=== PATIENT | male | born 1950 | race Caucasian/White ===

== ENCOUNTER 2017-11-06 14:12 | Emergency (ER) | payer OTHER ==
[~2017-11-06] VITALS: Ht 162.6 cm; Wt 65.8 kg
--- NOTE | 2017-11-06 14:20 | ED PSYCHIATRIC COMPLAINT ---
History of Present Illness General Chief Complaint: Psychiatric Related Complaint Stated Complaint: BIBA, BEHAVIOR ISSUES Source: patient, EMS Exam Limitations: clinical condition Vital Signs & Intake/Output Vital Signs & Intake/Output Vital Signs Date Time Temp Pulse Resp B/P B/P Pulse O2 O2 Flow FiO2 Mean Ox Delivery Rate 11/06 1910 98.0 110 20 134/73 99 11/06 1553 136/86 11/06 1414 98.0 108 20 163/87 98 Room Air Allergies Coded Allergies: No Known Allergies (11/06/17) Reconcile Medications Insulin Detemir (Levemir) 100 UNIT/ML VIAL DIABETES (Reported) Tamsulosin HCl (Flomax) 0.4 MG CAP.ER.24H 1 CAP PO DAILY PROSTATE (Reported) Triage Nurses Notes Reviewed? yes Onset: Abrupt Duration: day(s): (FEW) Timing: recent history Severity: moderate, severe Associated Symptoms: AGITATION, DESTROYED PROPERTY HPI: This is a 67-year-old male with history of bipolar disorder sent in from [facility] for behavioral disturbances. According to the nurse he has been disrobing , disruptive, destroying his property in the room as well as wrapping of the thermometer from the wall. Patient was started on Seroquel and Ativan for behavioral issues a few days ago. He just had Ativan prior to coming here. They're trying to refer him to [facility] here and thought they might have a bed today but there will be no bed available tomorrow. They're having issues with medicating him to keep him calm. He was recently admitted to [facility] after being discharged from [facility] this past Saturday. He arrived with no psychiatric medication recommendations. (Pia Mcintyre MD) Past History Travel History Traveled to [place] past 21 day No Medical History Any Pertinent Medical History? see below for history Cardiovascular: hypertension Psychiatric: bipolar disease Endocrine: diabetes Surgical History Surgical History: unobtainable Family History Hx Contributory? No (Pia Mcintyre MD) Review of Systems Review of Systems Constitutional: Reports: see HPI (PER HPI). (Pia Mcintyre MD) Physical Exam Physical Exam General Appearance: well developed/nourished, alert, awake, anxious, mild distress Head: atraumatic, normal appearance Eyes: Bilateral: normal appearance, PERRL, EOMI. Ears, Nose, Throat: hearing grossly normal Neck: normal inspection, supple, full range of motion Respiratory: normal breath sounds, chest non-tender, no respiratory distress Cardiovascular: regular rate/rhythm, normal peripheral pulses Gastrointestinal: soft, non-tender Neurological/Psychiatric: awake, alert, CONFUSED Appearance/Memory/Insight: disheveled, impaired insight Behavoir/Eye Contact/Speech: cooperative, decreased rate of speech Thoughts/Hallucinations: no apparent hallucination SAD PERSONS Done? unobtained due to conditi (Francisco Javier BENZ,Pia) Progress Differential Diagnosis: BIPOLAR DISORDER, PSYCHOSIS, DEMENTIA, DELERIUM Plan of Care: Orders Procedure Date/time Status Patient Safety Monitor 11/06 1551 Active ED CRISIS PSYCH CONSULT 11/06 1509 Active Patient Safety Monitor 11/06 1455 Complete URINE DRUGS OF ABUSE 11/06 1455 Complete ETHANOL 11/06 1455 Complete COMPREHENSIVE METABOLIC PANEL 11/06 1455 Complete CBC WITHOUT DIFFERENTIAL 11/06 145 Complete Current Medications Sig/Evelia Start time Last Medication Dose Stop Time Status Admin Lorazepam 0.5 MG Q4 PRN 11/06 1515 AC (Ativan) 11/13 1516 Laboratory Tests 11/06/17 1727: Urine Opiates Screen < 100.00, Methadone Screen < 40, Barbiturate Screen < 60, Ur Phencyclidine Scrn < 6.00, Amphetamines Screen < 100, U Benzodiazepines Scrn < 85, Urine Cocaine Screen < 50, Urine Cannabis Screen < 5.00 11/06/17 1535: Anion Gap 10, Estimated GFR > 60, BUN/Creatinine Ratio 21.7, Glucose 177 H, Calcium 9.0, Total Bilirubin 0.4, AST 27, ALT 47, Alkaline Phosphatase 66, Total Protein 6.0 L, Albumin 3.5, Globulin 2.5, Albumin/Globulin Ratio 1.4, CBC w Diff NO MAN DIFF REQ, RBC 3.63 L, MCV 89.9, MCH 30.1, MCHC 33.5, RDW 15.1 H, MPV 9.1, Gran % 56.4, Lymphocytes % 29.7, Monocytes % 11.1 H, Eosinophils % 2.3 , Basophils % 0.5, Absolute Granulocytes 4.4, Absolute Lymphocytes 2.3, Absolute Monocytes 0.9 H, Absolute Eosinophils 0.2, Absolute Basophils 0, Serum Alcohol < 10.0 Hand-Off Endorsed To: Valeria BENZ,Carroll Harris Endorsed Time: 1933 Pending: consult (CRISIS) (Pia Mcintyre MD) Comments: Patient has been seen and evaluated by dog or animal sitter. Patient is found not to be a danger to himself or others at this time. Case was discussed with the psychiatrist as well as the nurse over at the facility. Patient is stable for discharge back. (Valeria BENZ,Carroll Harris) Departure Departure Disposition: STILL A PATIENT Condition: Stable Clinical Impression Primary Impression: Bipolar 1 disorder Referrals: Bryce Seals MD (PCP/Family) Departure Forms: Customer Survey General Discharge Information (Pia Mcintyre MD)
[2017-11-06] MEDS ORDERED: LEVEMIR100 UNIT/1 SC (14:50)
[2017-11-06] MEDS ORDERED: FLOMAX0.4 M1 PO (14:51)
[2017-11-06 15:47] LABS: ABSOLUTE BASOPHIL COUNT 0 /CUMM (0.0-0.2); ABSOLUTE EOSINOPHIL COUNT 0.2 /CUMM (0.0-0.7); ABSOLUTE GRANULOCYTE CT 4.4 /CUMM (1.4-6.5); ABSOLUTE LYMPH COUNT 2.3 /CUMM (1.2-3.4); ABSOLUTE MONOCYTE COUNT 0.9 /CUMM (0.10-0.60); BASOPHIL % 0.5 % (0.0-2.0); EOSINOPHIL % 2.3 % (0-5); GRANULOCYTE % 56.4 % (42.2-75.2); HEMATOCRIT 32.6 % (42-52); MEAN CORPUSCULAR HGB 30.1 PG (27.0-31.0); MEAN CORPUSCULAR HGB CONC 33.5 G/DL (33.0-37.0); MEAN CORPUSCULAR VOLUME 89.9 FL (80.0-94.0); MEAN PLATELET VOLUME 9.1 FL (7.4-10.4); PLATELET COUNT 300 /CUMM (130-400); RBC DISTRIBUTION WIDTH 15.1 % (11.5-14.5); RED BLOOD CELL CT 3.63 /CUMM (4.70-6.10); WHITE BLOOD CELL COUNT 7.7 /CUMM (4.8-10.8)
--- NOTE | 2017-11-06 20:45 | ED PSYCH CRISIS CONSULTATION ---
Crisis Consult Basic Assessment Date of Consult: 11/06/17 Responsible Person/Accompanied By: Brought in by ambulance from [facility] Insurance Authorization: Insurance #1: Insurance name: [employer] Policy number: [id number] ED Provider: Patient's ED Provider: Valeria BENZ,Carroll Harris Primary Care Physician: Patient's PCP: Bryce Seals MD PCP's Current Psychiatrist: No current psychiatrist Chief Complaint: Psychiatric Related Complaint Patient's Quote: "I dont know...they wanted to reevaluate me...I was exciteable. " Present Illness: Patient is a 67 year old male who presents to the emergency department / crisis from a rehabiliatation center ([facility] in [place].) Patient was recently discharged from [facility] where he had an extended stay for a leg ampuation. Patient is a type II diabetic. [facility] report patient presents with disruptive behavior, agitation, and destruction of property. Patient is a - his ~10 years ago from congestive heart failure. He has no children. Patient admits to being "exciteable" and agitated. Patient asserts his mood can become agitated stating "if you become an amputee youre not going to be happy." Patient expressed difficulty adjusting to his amputee status and the reason why it happened (bacterial infection acquired while hospitalized for uncontrolled diabetes.) Patient denies homicidal ideation, suicidal ideation, intent or plan. Patient presents calm, rational, and without any indication of active psychosis. Patient denies auditory or visual hallucinations. Patient does report a historical diagnosis of bipolar disorder stating he is a "manic depressive." Patient reports history of psychotropic medication including lithium and depakote. Patient currently is not prescribed any psychotropic medications. While in ED, patient did receive Ativan and Seroquel which he reports has good effect. Patient is receptive to ongoing medication management. Patient denies any acute medical concerns at this time and has been medically cleared by attending physician Dr. Mcintyre. Patient denies any substance use - urine toxicology screening administered today is negative for all substances. Patient has the support of his brother Tom Cintron who is also his power of employment law attorney. This brother lives in [place]. Patient also listed a close friend - Kristie Saeed [facility]. Patient has no supportive contacts in the state of [place]. Patient was residing in [place], [place] in a private apartment. Patient asserts he may not be ready to go back to independent living and his goal is to be considered for an assisted living facility. Patient's Address: [place] [address] Who Do You Live With? Patient/Self Family/Informants Interviewed: Shanthi -nurse at [facility] Allergies - Coded Allergies: No Known Allergies (11/06/17) Current Medications - Scheduled Medications Tamsulosin HCl (Flomax) 0.4 MG CAP.ER.24H 1 CAP PO DAILY PROSTATE (Reported) Entered as Reported by Jorge Pina on 11/06/17 1451 Miscellaneous Medications Insulin Detemir (Levemir) 100 UNIT/ML VIAL DIABETES (Reported) Entered as Reported by Jorge Pina on 11/06/17 1450 Laboratory Results: Laboratory Tests 11/06/17 1727: Urine Opiates Screen < 100.00, Methadone Screen < 40, Barbiturate Screen < 60, Ur Phencyclidine Scrn < 6.00, Amphetamines Screen < 100, U Benzodiazepines Scrn < 85, Urine Cocaine Screen < 50, Urine Cannabis Screen < 5.00 11/06/17 1535: Anion Gap 10, Estimated GFR > 60, BUN/Creatinine Ratio 21.7, Glucose 177 H, Calcium 9.0, Total Bilirubin 0.4, AST 27, ALT 47, Alkaline Phosphatase 66, Total Protein 6.0 L, Albumin 3.5, Globulin 2.5, Albumin/Globulin Ratio 1.4, CBC w Diff NO MAN DIFF REQ, RBC 3.63 L, MCV 89.9, MCH 30.1, MCHC 33.5, RDW 15.1 H, MPV 9.1, Gran % 56.4, Lymphocytes % 29.7, Monocytes % 11.1 H, Eosinophils % 2.3 , Basophils % 0.5, Absolute Granulocytes 4.4, Absolute Lymphocytes 2.3, Absolute Monocytes 0.9 H, Absolute Eosinophils 0.2, Absolute Basophils 0, Serum Alcohol < 10.0 Past History Past Medical History Any Pertinent Medical History? unobtainable Neurological: AMS Cardiovascular: hypertension Renal: RHABDOMYOLYSIS Psychiatric: bipolar disease Endocrine: diabetes Past Surgical History Surgical History: unobtainable Psychosocial History Strengths/Capabilities: Sense of humor Physical Limitations (Interventions): Amputee (right leg above knee) Psychiatric Treatment History Psych Treatment Psychiatric Treatment Yes Inpatient Treatment Yes Outpatient Treatment Yes Location of Treatment [place] Reason for Treatment Bipolar disorder Dates of Treatment Patient did not specify other than when I was in my 20s." Response to Treatment positive Diagnosis by History: Bipolar disorder Substance Use/Abuse History Drug Use/Abuse Substances Used/Abused No Substance Abuse Treatment Substance Abuse Treatment Past Substance Abuse [place] No Current Mental Status Mental Status Orientation: Person, Place, Situation Affect: WNL Speech: WNL Neuro-vegetative: WNL Appearance Appearance- Dress/Hygiene: Patient dressed in hospital attire. No remarkable features. Behaviors Thought Process: WNL Thought Content: WNL Memory: WNL Insight: Fair SI/HI Risk Assessment Past Suicidal Ideation/Attempts No (Patient denies asserting milton) Current Suicidal Ideation/Att No (Patient denies) Past Homicidal Ideation/Att: No Current Homicidal Ideation/Attempts No Degree of Intent: None Risk Factors: age (under 24/over 65), poor impulse control, lives alone, male, limited support Lethality Ratin (mild) PTSD Checklist PTSD Done? patient declined ED Management Sitter: Yes Restraints: No (Patient calm & cooperative.) DSM5/PS Stressors/Medical Prob Diagnosis' (DSM 5, Stressors, Medical): F31.9 Bipolar I disorder, Current or most recent episode unspecified Current GAF: 40 Comments: Recent physical disability Departure Disposition Psych Medical Clearance Date: 11/06/17 Medically Cleared at: 1929 Time Started: 1929 Time Ended: 2029 Psychiatrist Consulted: Dr. Rosemary Moser MD Date Disposition Established: 11/06/17 Time Disposition Established: 2029 Plan for Disposition - Modality: SNF Facility: [facility] Rationale for Disposition: Crisis evaluation reviewed with Dr. Moser. Patient is advised to be evaluated by a geriatric psychiatric provider. Patient does not meet criteria for an inpatient psychiatric admission or for further hold in the ED as he is stable with no high risk factors. This policy writer spoke with DENA Maki at [facility] - Sh[facility]hi reported their plan is to refer patient to [facility] with a concurrent plan to have him evaluated by their geriatric psychiatric provider. Referrals Bryce Seals MD (PCP/Family)
[2017-11-06 21:41] VITALS: BP 135/76
== END 2017-11-06 21:42 ==
LOC: ERH 14:12
PROVIDERS: Emergency Medicine
DX: F31.9 Bipolar disorder, unspecified (principal)
CPT/HCPCS: 80307; G0463; G0480